=== PATIENT | male | born 1995 | race Caucasian/White ===

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

== ENCOUNTER 2017-12-19 15:31 | Emergency (ER) | payer OTHER ==
[2017-12-19 15:41] VITALS: BP 164/95; PULSE 111; RESP 18; TEMP 97.3
--- NOTE | 2017-12-19 16:50 | ED ---
Chest Pain HPI - General Chief Complaint: Chest Pain Stated Complaint: Facial numbness Time Seen by Provider: 12/19/17 16:24 Source: patient Mode of arrival: ambulatory Limitations: no limitations - History of Present Illness Initial Comments: Patient is a 22-year-old male with no past medical history that is sent for chest pain. The patient states that last night, he was playing cold duty and he was washing his friend playing when he felt like his chest was hurting. It felt like a "empty heartbeat" and it felt like a stabbing sensation without radiation and states that he got better whenever he would lay flat. He also admits to taking some Benadryl intravenously which made the symptoms go away. However, when he woke up, he again had the symptoms which worsened throughout the day. He denies any illicit drug use other than marijuana and states that there is no history of early heart attacks in his family.Pt also denies any prolonged periods of immobility, CA, DVT/PE, estrogen use, or recent surgery. - Related Data Home Medications Medication Instructions Recorded Confirmed Dm/Acetaminophen/Doxylamine [Vicks 1 cap PO DAILY 12/19/17 12/19/17 Nyquil Liquicaps] diphenhydrAMINE HCL [Benadryl] 25 mg PO HS 12/19/17 12/19/17 Allergies Allergy/AdvReac Type Severity Reaction Status Date / Time neomycin sulfate Allergy Severe Anaphylaxis Verified 12/19/17 16:35 [From Neosporin ([id number])] bacitracin Allergy Anaphylaxis Verified 12/19/17 16:35 [From Neosporin ([id number])] bacitracin zinc Allergy Anaphylaxis Verified 12/19/17 16:35 [From Neosporin ([id number])] polymyxin B Allergy Anaphylaxis Verified 12/19/17 16:35 [From Neosporin ([id number])] Review of Systems ROS Statement: Those systems with pertinent positive or pertinent negative responses have been documented in the HPI. Constitutional: Negative for chills, fatigue and fever. HENT: Negative for congestion. Respiratory: Negative for chest tightness, shortness of breath and wheezing. Negative for cough Cardiovascular: Positive for chest pain and palpitations. Gastrointestinal: Negative for abdominal pain. Negative for abdominal distention , diarrhea, nausea and vomiting. Genitourinary: Negative for dysuria. Musculoskeletal: Negative for back pain, neck pain and neck stiffness. Skin: Negative for color change. Neurological: Negative for dizziness, speech difficulty, weakness and light- headedness. Psychiatric/Behavioral: Negative for agitation and confusion. Negative for anxiety ROS Other: All systems not noted in ROS Statement are negative. EKG Findings - EKG Comments: EKG Findings:: EKG shows normal sinus rhythm with a rate of 88 bpm, OR interval 138, QRS 100, QTC 438. There are no significant ST depressions or elevations. Past Medical History Past Medical History: No Reported History History of Any Multi-Drug Resistant Organisms: MRSA Date of last positivie culture/infection: 10/28/2013 MDRO Source:: Left Leg Additional Past Surgical History / Comment(s): Hydrocele, heel surgery, wrist surgery Past Psychological History: No Psychological Hx Reported Smoking Status: Current every day smoker Past Alcohol Use History: None Reported Past Drug Use History: Marijuana General Exam - General Exam Comments Initial Comments: Constitutional: Pt is oriented to person, place, and time. Pt appears well- developed and well-nourished. No distress. HENT: Head: Normocephalic and atraumatic. Eyes: EOM are normal. Neck: Normal range of motion. Neck supple. Cardiovascular: Normal rate, regular rhythm, S1 normal, S2 normal and normal heart sounds. Exam reveals no gallop and no friction rub. No murmur heard. Pulmonary/Chest: Effort normal and breath sounds normal. No tachypnea and no bradypnea. No respiratory distress. No wheezes or rales noted. Abdominal: Soft. Bowel sounds are normal. Pt exhibits no shifting dullness, no distension, no pulsatile liver, no fluid wave, no abdominal bruit and no ascites. There is no tenderness. There is no rigidity, no rebound, no guarding, no tenderness at McBurney's point and negative Vivas's sign. Musculoskeletal: Normal range of motion. Neurological: Pt is alert and oriented to person, place, and time. No cranial nerve deficit. Skin: Skin is warm and dry. No rash noted. Pt is not diaphoretic. No erythema. No pallor. Psychiatric: Pt has a normal mood and affect. Pt behavior is normal. Thought content normal. Limitations: no limitations Course Vital Signs 12/19/17 15:37 Temperature 97.3 F L Pulse Rate 111 H Respiratory 18 Rate Blood Pressure 164/95 O2 Sat by Pulse 100 Oximetry Chest Pain MDM - MDM Chest x-ray showed no evidence acute pathology and EKG showed normal sinus rhythm. D-dimer was performed as the patient was noted to be tachycardic in triage and negative. CBC and BMP showed no evidence of significant abnormalities.It was explained that while there does not appear to be an emergent process, the etiology of the symptoms are still unclear but possibly related to muscle strain and may need further workup as an outpatient if symptoms continue. Explained all labs and diagnostic test results and that we will discharge the patient home and patient is to follow up with PCP in 1-2 days and return to the ED if symptoms worsen. Pt is agreeable to plan. Disposition Clinical Impression: Chest pain Disposition: HOME SELF-CARE Condition: Good Instructions: Chest Pain (ED) Is patient prescribed a controlled substance at d/c from ED?: No Referrals: None,Stated [Primary Care Provider] - 1-2 days Time of Disposition: 18:01
[2017-12-19 17:07] LABS: Basophils # (A) 0.1 k/uL (0-0.2); Basophils % (A) 1 %; Eosinophils # (A) 0.4 k/uL (0-0.7); Eosinophils % (A) 6 %; HCT 46.6 % (39.0-53.0); Lymphocytes # (A) 2.1 k/uL (1.0-4.8); Lymphocytes % (A) 29 %; MCH 31.1 pg (25.0-35.0); MCHC 34.3 g/dL (31.0-37.0); MCV 90.7 fL (80.0-100.0); Mean Platelet Volume 7.4; Monocytes # (A) 0.4 k/uL (0-1.0); Monocytes % (A) 5 %; Neutrophils % (A) 57 %; Platelet Count 163 k/uL (150-450); RBC 5.14 m/uL (4.30-5.90); RDW 12.4 % (11.5-15.5); WBC 7.1 k/uL (4.0-11.0)
[2017-12-19 17:18] LABS: Anion Gap 9 mmol/L; Blood Urea Nitrogen 11 mg/dL (9-20); Calcium 9.5 mg/dL (8.4-10.2); Carbon Dioxide 27 mmol/L (22-30); Chloride 107 mmol/L (98-107); Glucose 98 mg/dL (74-99); Potassium 4.6 mmol/L (3.5-5.1); Sodium 143 mmol/L (137-145)
--- NOTE | 2017-12-19 17:36 | XR ---
EXAMINATION TYPE: XR chest 2V DATE OF EXAM: 12/19/2017 COMPARISON: NONE HISTORY: Heart racing and chest pain today. TECHNIQUE: Frontal and lateral views of the chest are obtained. FINDINGS: There is no focal air space opacity, pleural effusion, or pneumothorax seen. The cardiac silhouette size is within normal limits. The osseous structures are intact. IMPRESSION: No acute cardiopulmonary process.
== END 2017-12-19 18:43 | disposition home or self-care (01) ==
LOC: EC 15:31
DX: R07.9 Chest pain, unspecified (principal); R20.0 Anesthesia of skin; F17.200 Nicotine dependence, unspecified, uncomplicated; Z86.14 Personal history of Methicillin resistant Staphylococcus aureus infection; Z79.899 Other long term (current) drug therapy; Z88.1 Allergy status to other antibiotic agents
CPT/HCPCS: 36415; 71046; 80048; 85025; 85379; 93005; 99285

== ENCOUNTER 2018-03-15 20:17 | Emergency (ER) | payer OTHER ==
[2018-03-15 20:26] VITALS: TEMP 98.8
--- NOTE | 2018-03-15 22:35 | ED ---
Skin/Abscess/FB HPI - General Source: patient Mode of arrival: ambulatory Limitations: no limitations <Silvia Costa - Last Filed: 03/16/18 04:09> <Ebony Fay - Last Filed: 03/16/18 09:57> - General Chief complaint: Skin/Abscess/Foreign Body Stated complaint: Dry Skin/Rash Time Seen by Provider: 03/15/18 22:03 - History of Present Illness Initial comments: 22-year-old male patient presents to the emergency department today for evaluation of rash to his trunk. Patient states that 3 weeks ago he noticed some red bumps beneath the right breast. Patient states that since then the bumps have spread over his trunk. Patient denies any itching, burning, drainage , or pain from the lesions. Patient states he did start using a new laundry detergent but denies exposure to any other new substances. Denies any fever or chills. Denies any recent travel. States otherwise he feels well. Patient denies any recent rash, shortness breath, chest pain, abdominal pain, nausea, vomiting, diarrhea, constipation, back pain, numbness, tingling, dizziness, weakness, hematuria, dysuria, urinary urgency, urinary frequency, headache, visual changes, or any other complaints. (Silvia Costa) - Related Data Home Medications Medication Instructions Recorded Confirmed No Known Home Medications 03/15/18 03/15/18 Allergies Allergy/AdvReac Type Severity Reaction Status Date / Time neomycin sulfate Allergy Severe Anaphylaxis Verified 03/15/18 22:31 [From Neosporin ([id number])] bacitracin Allergy Anaphylaxis Verified 03/15/18 22:31 [From Neosporin ([id number])] bacitracin zinc Allergy Anaphylaxis Verified 03/15/18 22:31 [From Neosporin ([id number])] polymyxin B Allergy Anaphylaxis Verified 03/15/18 22:31 [From Neosporin ([id number])] Review of Systems ROS Other: All systems not noted in ROS Statement are negative. <Silvia Costa - Last Filed: 03/16/18 04:09> ROS Other: All systems not noted in ROS Statement are negative. <Ebony Fay - Last Filed: 03/16/18 09:57> ROS Statement: Those systems with pertinent positive or pertinent negative responses have been documented in the HPI. Past Medical History Past Medical History: No Reported History Additional Past Medical History / Comment(s): possible HTN, History of Any Multi-Drug Resistant Organisms: MRSA Date of last positivie culture/infection: 10/28/2013 MDRO Source:: Left Leg Additional Past Surgical History / Comment(s): Hydrocele, heel surgery, wrist surgery, Past Psychological History: No Psychological Hx Reported Smoking Status: Current every day smoker Past Alcohol Use History: Occasional Past Drug Use History: None Reported <Silvia Costa - Last Filed: 03/16/18 04:09> General Exam Limitations: no limitations General appearance: alert, in no apparent distress, other (This is a well- developed, well-nourished adult male patient in no acute distress. Vital signs upon presentation are temperature 98.8F, pulse 84, respirations 18, blood pressure 171/100, pulse ox 99% on room air) Respiratory exam: Present: normal lung sounds bilaterally. Absent: respiratory distress, wheezes, rales, rhonchi, stridor Cardiovascular Exam: Present: regular rate, normal rhythm, normal heart sounds. Absent: systolic murmur, diastolic murmur, rubs, gallop, clicks Neurological exam: Present: alert, oriented X3, CN II-XII intact Psychiatric exam: Present: normal affect, normal mood Skin exam: Present: warm, dry, intact, normal color, rash (Patient has discrete erythematous papules scattered distribution over the trunk. Lesions are non- petechial, nonvesicular, no surrounding erythema.) <Silvia Costa M - Last Filed: 03/16/18 04:09> Vital Signs 03/15/18 03/15/18 20:21 22:42 Temperature 98.8 F Pulse Rate 84 67 Respiratory 18 16 Rate Blood Pressure 171/100 158/92 O2 Sat by Pulse 99 97 Oximetry Medical Decision Making <Silvia Costa - Last Filed: 03/16/18 04:09> <Ebony Fay - Last Filed: 03/16/18 09:57> - Medical Decision Making 22-year-old male patient presents to the emergency department today for evaluation of rash to his trunk. Physical examination did reveal scattered erythematous papules. Lesions are non-pruritic nonpainful. They're nonvesicular, non-petechial. No oral lesions. Patient will be discharged home , is instructed to obtain [id number] cortisone cream to apply. He is instructed to follow-up with [facility] for possible referral to dermatology. Return parameters discussed in detail. He verbalizes understanding and agrees with this plan. (Silvia Costa) I personally saw and evaluated the patient. Patient has nonpruritic nonpainful nonvesicular non-petechial lesions isolated to the trunk. These are of uncertain etiology, do not appear infectious. At this time I advised the patient that supportive care with continued avoidance of any skinnier tense and follow up with primary care and dermatology as recommended. (Ebony Fay) Disposition Is patient prescribed a controlled substance at d/c from ED?: No Time of Disposition: 22:35 <Silvia Costa - Last Filed: 03/16/18 04:09> <Ebony Fay - Last Filed: 03/16/18 09:57> Clinical Impression: Rash Disposition: HOME SELF-CARE Condition: Good Instructions: Acute Rash (ED) Additional Instructions: Try over the counter cortisone cream, apply to the lesions. Follow up outpatient with [facility] for further evaluation and referral to dermatology. Return to the emergency department for any new, worsening, or concerning symptoms Referrals: [facility] [NON-STAFF] - 1-2 days
[2018-03-15 22:44] VITALS: BP 158/92; PULSE 67; RESP 16
== END 2018-03-15 22:42 | disposition home or self-care (01) ==
LOC: EC 20:17
DX: R21 Rash and other nonspecific skin eruption (principal); R23.8 Other skin changes; F17.200 Nicotine dependence, unspecified, uncomplicated; Z86.14 Personal history of Methicillin resistant Staphylococcus aureus infection; Z98.890 Other specified postprocedural states; Z88.1 Allergy status to other antibiotic agents
CPT/HCPCS: 99282

== ENCOUNTER 2023-06-23 19:14 | Emergency (ER) | payer OTHER ==
--- NOTE | 2023-06-23 19:40 | ED ---
General Adult HPI - General Chief complaint: ENT Stated complaint: Left earlobe swollen Time Seen by Provider: 06/23/23 19:39 Source: patient, RN notes reviewed Mode of arrival: ambulatory Limitations: no limitations - History of Present Illness Initial comments: 27 year old male presents to the emergency department for left ear pain and swelling x 2 days. Swelling seems to be around where his ear piercings are on his left earlobe. He also notes redness to the area. He also notes a lump in his neck. He does note that he took 1 dose of Augmentin earlier today that his mother had leftover. He also admits to taking ibuprofen for the pain. He denies fever. Denies nausea, vomiting. He does report a history of elevated blood pressure but he does not take medications currently. - Related Data Previous Rx's Medication Instructions Recorded Cephalexin [Keflex] 500 mg PO Q6HR #40 cap 06/23/23 Losartan [Cozaar] 25 mg PO DAILY #14 tab 06/23/23 Sulfamethox-Tmp 800-160Mg [Bactrim 1 tab PO Q12HR #20 tab 06/23/23 DS 800-160 mg] Allergies Allergy/AdvReac Type Severity Reaction Status Date / Time neomycin sulfate Allergy Severe Anaphylaxis Verified 06/23/23 19:37 [From Neosporin ([id number])] bacitracin Allergy Anaphylaxis Verified 06/23/23 19:37 [From Neosporin ([id number])] bacitracin zinc Allergy Anaphylaxis Verified 06/23/23 19:37 [From Neosporin ([id number])] polymyxin B Allergy Anaphylaxis Verified 06/23/23 19:37 [From Neosporin ([id number])] Review of Systems ROS Statement: Those systems with pertinent positive or pertinent negative responses have been documented in the HPI. ROS Other: All systems not noted in ROS Statement are negative. Past Medical History Past Medical History: No Reported History Additional Past Medical History / Comment(s): possible HTN, History of Any Multi-Drug Resistant Organisms: MRSA Date of last positivie culture/infection: 10/28/2013 MDRO Source:: Left Leg Additional Past Surgical History / Comment(s): Hydrocele, heel surgery, wrist surgery, Past Psychological History: No Psychological Hx Reported Smoking Status: Current every day smoker Past Alcohol Use History: Occasional Past Drug Use History: None Reported General Exam - General Exam Comments Initial Comments: Visual Physical Exam Vital signs reviewed General: Well-appearing, nontoxic, no acute distress. Head: Normocephalic, atraumatic Eyes: PERRLA, EOMI ENT: Airway patent, erythema and swelling to left ear lobe Chest: Nonlabored breathing Skin: No visual rash, normal skin tone Neuro: Alert and oriented 3 Musculoskeletal: No gross abnormalities Limitations: no limitations General appearance: alert, in no apparent distress Head exam: Present: atraumatic, normocephalic, normal inspection Eye exam: Present: normal appearance, PERRL, EOMI. Absent: scleral icterus, conjunctival injection, periorbital swelling ENT exam: Present: TM's normal bilaterally, other (No mastoid tenderness to palpation). Absent: normal external ear exam (Swelling and erythema to the left earlobe around ear piercing) Neck exam: Present: lymphadenopathy (Preauricular lymphadenopathy). Absent: tenderness, meningismus Respiratory exam: Present: normal lung sounds bilaterally. Absent: respiratory distress, wheezes, rales, rhonchi, stridor Cardiovascular Exam: Present: regular rate, normal rhythm, normal heart sounds. Absent: systolic murmur, diastolic murmur, rubs, gallop, clicks Neurological exam: Present: alert, oriented X3 Psychiatric exam: Present: normal affect, normal mood Skin exam: Present: warm, dry, intact, erythema. Absent: normal color, rash Course Vital Signs 06/23/23 06/23/23 19:34 20:33 Temperature 98 F 98.2 F Pulse Rate 122 H 92 Respiratory 20 18 Rate Blood Pressure 187/110 173/112 O2 Sat by Pulse 100 97 Oximetry Medical Decision Making - Medical Decision Making Quick note preformed and electronically signed by Desiree Hadley PA-C Was pt. sent in by a medical professional or institution (SHANNON Jose, REGISTERED DIETETIC TECHNICIAN, urgent care, hospital, or fdc...) When possible be specific @ -No Did you speak to anyone other than the patient for history (EMS, parent, family, police, friend...)? What history was obtained from this source @ -No Did you review nursing and triage notes (agree or disagree)? Why? @ -I reviewed and agree with nursing and triage notes Were old charts reviewed (outside hosp., previous admission, EMS record, old EKG, old radiological studies, urgent care reports/EKG's, fdc records)? Report findings @ -No old charts were reviewed Differential Diagnosis (chest pain, altered mental status, abdominal pain women, abdominal pain men, vaginal bleeding, weakness, fever, dyspnea, syncope, headache, dizziness, GI bleed, back pain, seizure, CVA, palpatations, mental health, musculoskeletal)? @ -Cellulitis, abscess, otitis media, otitis externa, this list is not all inclusive. EKG interpreted by me (3pts min.). @ -none X-rays interpreted by me (1pt min.). @ -None done CT interpreted by me (1pt min.). @ -None done U/S interpreted by me (1pt. min.). @ -None done What testing was considered but not performed or refused? (CT, X-rays, U/S, labs)? Why? @ -None What meds were considered but not given or refused? Why? @ -None Did you discuss the management of the patient with other professionals (professionals i.e. , PA, REGISTERED DIETETIC TECHNICIAN, lab, RT, psych nurse, social media coordinator, bilingual patient support caseworker, teacher, radio division officer, sample case porter)? Give summary @ -No Was smoking cessation discussed for >3mins.? @ -No Was critical care preformed (if so, how long)? @ -No Were there social determinants of health that impacted care today? How? (Homelessness, low income, unemployed, alcoholism, drug addiction, transportation, low edu. Level, literacy, decrease access to med. care, long term, rehab)? @ -No Was there de-escalation of care discussed even if they declined (Discuss DNR or withdrawal of care, Hospice)? DNR status @ -No What co-morbidities impacted this encounter? (DM, HTN, Smoking, COPD, CAD, Cancer, CVA, ARF, Chemo, Hep., AIDS, mental health diagnosis, sleep apnea, morbid obesity)? @ -None Was patient admitted / discharged? Hospital course, mention meds given and route, prescriptions, significant lab abnormalities, going to OR and other pertinent info. @ -Discharged. Patient presented to the emergency department for evaluation of left external ear pain and swelling x 2 days. Reports taking 1 dose of Augmentin earlier today. He denies fever, chills. Patient will be treated for cellulitis. Patient given a dose of Rocephin in the ED along with Toradol. Prescription sent to patient's pharmacy for antibiotics. 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 Strict return precautions discussed. Patient was also found to have elevated blood pressure readings. He does report issues with this in the past. He does not currently follow with a PCP. Denies symptoms of chest pain, headache, shortness of breath. Advised to monitor his blood pressure at home and follow-up with a primary care provider for further management. List of PCPs provided. Patient understanding and agreeable with discharge plan. Undiagnosed new problem with uncertain prognosis? @ -No Drug Therapy requiring intensive monitoring for toxicity (Heparin, Nitro, Insulin, Cardizem)? @ -No Were any procedures done? @ -No Diagnosis/symptom? @ -Cellulitis of left ear Acute, or Chronic, or Acute on Chronic? @ -Acute Uncomplicated (without systemic symptoms) or Complicated (systemic symptoms)? @ -Uncomplicated Side effects of treatment? @ -No Exacerbation, Progression, or Severe Exacerbation? @ -No Poses a threat to life or bodily function? How? (Chest pain, [place], [place], pneumonia, PE, COPD, DKA, ARF, appy, cholecystitis, CVA, Diverticulitis, Homicidal, Suicidal, threat to staff... and all critical care pts) @ -No Disposition Clinical Impression: Cellulitis of earlobe, Hypertension Disposition: HOME SELF-CARE Condition: Stable Instructions (If sedation given, give patient instructions): Cellulitis (ED), Chronic Hypertension (ED) Additional Instructions: Please molded goods spot picker antibiotics and take to completion. Utilize ibuprofen and Tylenol for discomfort. Follow with your primary care provider for blood pressure management. Take your blood pressure at home and reports findings to PCP. Return to the emergency department for new or worsening symptoms. Prescriptions: Sulfamethox-Tmp 800-160Mg [Bactrim DS 800-160 mg] 1 tab PO Q12HR #20 tab Losartan [Cozaar] 25 mg PO DAILY #14 tab Cephalexin [Keflex] 500 mg PO Q6HR #40 cap Is patient prescribed a controlled substance at d/c from ED?: No Referrals: None,Stated [Primary Care Provider] - 1-2 days Forms: Area PCPs
[2023-06-23] MEDS: cefTRIAXone 1,000 MG VIAL (IM USE) IM STA (20:36)
[2023-06-23] MEDS: KETOROLAC 15 MG/ML 1 ML VIAL IM STA (20:36)
[2023-06-23 21:02] VITALS: BP 173/112; PULSE 92; RESP 18; TEMP 98.2
== END 2023-06-23 21:07 | disposition home or self-care (01) ==
LOC: EC 19:14
DX: H60.10 Cellulitis of external ear, unspecified ear (principal); I10 Essential (primary) hypertension; F17.200 Nicotine dependence, unspecified, uncomplicated; Z88.6 Allergy status to analgesic agent; Z88.8 Allergy status to other drugs, medicaments and biological substances
CPT/HCPCS: 99283; 96372 ×2; J0696; J1885

== ENCOUNTER 2024-02-23 09:34 | Emergency (ER) | payer OTHER ==
[2024-02-23 10:11] LABS: Basophils # (A) 0.1 k/uL (0-0.2); Basophils % (A) 1 %; Eosinophils # (A) 0.4 k/uL (0-0.7); Eosinophils % (A) 5 %; HCT 50.5 % (39.0-53.0); HGB 17.9 gm/dL (13.0-17.5); Lymphocytes # (A) 2.3 k/uL (1.0-4.8); Lymphocytes % (A) 28 %; MCH 36.4 pg (25.0-35.0); MCHC 35.5 g/dL (31.0-37.0); MCV 102.6 fL (80.0-100.0); Macrocytosis Slight; Mean Platelet Volume 7.9; Monocytes # (A) 0.4 k/uL (0-1.0); Monocytes % (A) 5 %; Neutrophils # (A) 4.7 k/uL (1.3-7.7); Neutrophils % (A) 58 %; Platelet Count 209 k/uL (150-450); RBC 4.93 m/uL (4.30-5.90); RDW 14.2 % (11.5-15.5); WBC 8.1 k/uL (3.8-10.6)
[2024-02-23] MEDS: SODIUM CHLORIDE 0.9% 500 ML 500 ML IV STA (10:23)
[2024-02-23 10:24] LABS: ALT 81 U/L (4-49); AST 154 U/L (17-59); African American GFR (CKD) >90 (>60 ml/min/1.73 sqM); Albumin 4.9 g/dL (3.5-5.0); Alkaline Phosphatase 121 U/L (38-126); Anion Gap 10 mmol/L; Blood Urea Nitrogen 7 mg/dL (9-20); Calcium 9.3 mg/dL (8.4-10.2); Carbon Dioxide 30 mmol/L (22-30); Chloride 108 mmol/L (98-107); Glucose 98 mg/dL (74-99); Lipase 112 U/L (23-300); Magnesium 2.1 mg/dL (1.6-2.3); Non-African American GFR(CKD) >90 (>60 ml/min/1.73 sqM); Potassium 3.3 mmol/L (3.5-5.1); Sodium 148 mmol/L (137-145); Total Bilirubin 0.7 mg/dL (0.2-1.3); Total Protein 8.1 g/dL (6.3-8.2)
[2024-02-23] MEDS: SODIUM CHLORIDE 0.9% 1,000 ML IV STA (10:24)
[2024-02-23 10:28] LABS: INR 0.9 (<1.2); Partial Thromboplastin Time 25.5 sec (22.0-30.0); Prothrombin Time 10.3 sec (10.0-12.5)
[2024-02-23] MEDS: KETOROLAC 15 MG/ML 1 ML VIAL IVP STA (10:46)
[2024-02-23] MEDS: POTASSIUM CHLORIDE ER 20 MEQ TAB.ER PO STA (10:48)
--- NOTE | 2024-02-23 11:33 | ED ---
General Adult HPI - General Chief complaint: Chest Pain Stated complaint: chest pain/SOB Time Seen by Provider: 02/23/24 09:46 Source: patient, RN notes reviewed Mode of arrival: ambulatory Limitations: no limitations - History of Present Illness Initial comments: 29-year-old male presents emergency department chief complaint of chest pain abdominal pain. Patient states that he drank a large amount alcohol last night. Patient states that woke up he has a history of pleurisy patient states pain feels worse with movement states that he does feel somewhat like pleurisy. Patient denies being recent illness he states he feels dehydrated from his alco hol use. Patient denies prior lung disease denies diarrhea, constipation, dysuria no back pain no flank pain. - Related Data Previous Rx's Medication Instructions Recorded Cephalexin [Keflex] 500 mg PO Q6HR #40 cap 06/23/23 Losartan [Cozaar] 25 mg PO DAILY #14 tab 06/23/23 Sulfamethox-Tmp 800-160Mg [Bactrim 1 tab PO Q12HR #20 tab 06/23/23 DS 800-160 mg] Allergies Allergy/AdvReac Type Severity Reaction Status Date / Time neomycin sulfate Allergy Severe Anaphylaxis Verified 02/23/24 09:38 [From Neosporin ([id number])] bacitracin Allergy Anaphylaxis Verified 02/23/24 09:38 [From Neosporin ([id number])] bacitracin zinc Allergy Anaphylaxis Verified 02/23/24 09:38 [From Neosporin ([id number])] polymyxin B Allergy Anaphylaxis Verified 02/23/24 09:38 [From Neosporin ([id number])] Review of Systems ROS Statement: Those systems with pertinent positive or pertinent negative responses have been documented in the HPI. ROS Other: All systems not noted in ROS Statement are negative. Past Medical History Past Medical History: No Reported History, Hypertension Additional Past Medical History / Comment(s): possible HTN, History of Any Multi-Drug Resistant Organisms: MRSA Date of last positivie culture/infection: 10/28/2013 MDRO Source:: Left Leg Additional Past Surgical History / Comment(s): Hydrocele, heel surgery, wrist surgery, Past Psychological History: No Psychological Hx Reported Smoking Status: Current every day smoker Past Alcohol Use History: Occasional Past Drug Use History: None Reported General Exam Limitations: no limitations General appearance: alert, in no apparent distress Head exam: Present: atraumatic, normocephalic, normal inspection Eye exam: Present: normal appearance, PERRL, EOMI. Absent: scleral icterus, conjunctival injection, periorbital swelling ENT exam: Present: normal exam, mucous membranes moist Neck exam: Present: normal inspection, full ROM. Absent: tenderness, meningismus, lymphadenopathy Respiratory exam: Present: normal lung sounds bilaterally, chest wall tender ness. Absent: respiratory distress, wheezes, rales, rhonchi, stridor Cardiovascular Exam: Present: normal rhythm, tachycardia, normal heart sounds. Absent: systolic murmur, diastolic murmur, rubs, gallop, clicks GI/Abdominal exam: Present: soft, tenderness, normal bowel sounds. Absent: distended, guarding, rebound, rigid Course Vital Signs 02/23/24 09:36 Temperature 97.8 F Pulse Rate 107 H Respiratory 20 Rate Blood Pressure 188/107 O2 Sat by Pulse 98 Oximetry EKG Findings - EKG Comments: EKG Findings:: EKG performed at 9: 48 sinus tachycardia rate of 102 DC 140 QRS 98 QT/QTc 353/412 - EKG Results: EKG: interpreted by EMY Medical Decision Making - Medical Decision Making Was pt. sent in by a medical professional or institution (, PA, CHANGE MANAGEMENT SPECIALIST, urgent care, hospital, or assisted...) When possible be specific @ -No Did you speak to anyone other than the patient for history (EMS, parent, family, police, friend...)? What history was obtained from this source @ -No Did you review nursing and triage notes (agree or disagree)? Why? @ -I reviewed and agree with nursing and triage notes Were old charts reviewed (outside hosp., previous admission, EMS record, old EKG, old radiological studies, urgent care reports/EKG's, assisted records)? Report findings @ -No old charts were reviewed Differential Diagnosis (chest pain, altered mental status, abdominal pain women, abdominal pain men, vaginal bleeding, weakness, fever, dyspnea, syncope, headache, dizziness, GI bleed, back pain, seizure, CVA, palpatations, mental health, musculoskeletal)? @ -Differential Chest Pain: Stable Angina, Unstable Angina, STEMI, NSTEMI Aortic Dissection, Pneumothorax, Musculoskeletal, Esophageal Spasm GERD, Cholecystitis, Pancreatitis, Zoster, this is not meant to be an all-inclusive list. EKG interpreted by me (3pts min.). @ -As above X-rays interpreted by me (1pt min.). @ -Chest x-ray shows no acute cardiopulmonary process. CT interpreted by me (1pt min.). @ -None done U/S interpreted by me (1pt. min.). @ -None done What testing was considered but not performed or refused? (CT, X-rays, U/S, labs)? Why? @ -None What meds were considered but not given or refused? Why? @ -None Did you discuss the management of the patient with other professionals (professionals i.e. , PA, CHANGE MANAGEMENT SPECIALIST, lab, RT, psych nurse, social work instructor, broke man, teacher, correctional security officer, employment evaluator/case manager)? Give summary @ -No Was smoking cessation discussed for >3mins.? @ -No Was critical care preformed (if so, how long)? @ -No Were there social determinants of health that impacted care today? How? (Homelessness, low income, unemployed, alcoholism, drug addiction, transportation, low edu. Level, literacy, decrease access to med. care, halfway, rehab)? @ -No Was there de-escalation of care discussed even if they declined (Discuss DNR or withdrawal of care, Hospice)? DNR status @ -No What co-morbidities impacted this encounter? (DM, HTN, Smoking, COPD, CAD, Cancer, CVA, ARF, Chemo, Hep., AIDS, mental health diagnosis, sleep apnea, m orbid obesity)? @ -None Was patient admitted / discharged? Hospital course, mention meds given and r oute, prescriptions, significant lab abnormalities, going to OR and other pertinent info. @ -Discharge patient has reproducible chest wall pain, worse with movement patient negative workup including labs, EKG chest x-ray. Patient did have mild hypokalemia was given K-Dur, patient did have a dehydration given fluids. Undiagnosed new problem with uncertain prognosis? @ -No Drug Therapy requiring intensive monitoring for toxicity (Heparin, Nitro, Insulin, Cardizem)? @ -No Were any procedures done? @ -No Diagnosis/symptom? @ -Chest wall pain, hypokalemia Acute, or Chronic, or Acute on Chronic? @ -Acute Uncomplicated (without systemic symptoms) or Complicated (systemic symptoms)? @ -Complicated Side effects of treatment? @ -No Exacerbation, Progression, or Severe Exacerbation? @ -No Poses a threat to life or bodily function? How? (Chest pain, [place], [place], pneumonia, PE, COPD, DKA, ARF, appy, cholecystitis, CVA, Diverticulitis, Homicidal, Suicidal, threat to staff... and all critical care pts) @ -No - Lab Data Result diagrams: 02/23/24 10:00 02/23/24 10:00 Lab Results 02/23/24 02/23/24 02/23/24 Range/Units 10:00 10:00 10:00 WBC 8.1 (3.8-10.6) k/uL RBC 4.93 (4.30-5.90) m/uL Hgb 17.9 H (13.0-17.5) gm/dL Hct 50.5 (39.0-53.0) % MCV 102.6 H (80.0-100.0) fL MCH 36.4 H (25.0-35.0) pg MCHC 35.5 (31.0-37.0) g/dL RDW 14.2 (11.5-15.5) % Plt Count 209 (150-450) k/uL MPV 7.9 Neutrophils % 58 % Lymphocytes % 28 % Monocytes % 5 % Eosinophils % 5 % Basophils % 1 % Neutrophils # 4.7 (1.3-7.7) k/uL Lymphocytes # 2.3 (1.0-4.8) k/uL Monocytes # 0.4 (0-1.0) k/uL Eosinophils # 0.4 (0-0.7) k/uL Basophils # 0.1 (0-0.2) k/uL Macrocytosis Slight PT 10.3 (10.0-12.5) sec INR 0.9 (<1.2) APTT 25.5 (22.0-30.0) sec Sodium 148 H (137-145) mmol/L Potassium 3.3 L (3.5-5.1) mmol/L Chloride 108 H (98-107) mmol/L Carbon Dioxide 30 (22-30) mmol/L Anion Gap 10 mmol/L BUN 7 L (9-20) mg/dL Creatinine 0.86 (0.66-1.25) mg/dL Est GFR (CKD-EPI)AfAm >90 (>60 ml/min/1.73 sqM) Est GFR (CKD-EPI)NonAf >90 (>60 ml/min/1.73 sqM) Glucose 98 (74-99) mg/dL Calcium 9.3 (8.4-10.2) mg/dL Magnesium 2.1 (1.6-2.3) mg/dL Total Bilirubin 0.7 (0.2-1.3) mg/dL AST 154 H (17-59) U/L ALT 81 H (4-49) U/L Alkaline Phosphatase 121 (38-126) U/L Troponin I (0.000-0.034) ng/mL Total Protein 8.1 (6.3-8.2) g/dL Albumin 4.9 (3.5-5.0) g/dL Lipase 112 (23-300) U/L 02/23/24 Range/Units 10:00 WBC (3.8-10.6) k/uL RBC (4.30-5.90) m/uL Hgb (13.0-17.5) gm/dL Hct (39.0-53.0) % MCV (80.0-100.0) fL MCH (25.0-35.0) pg MCHC (31.0-37.0) g/dL RDW (11.5-15.5) % Plt Count (150-450) k/uL MPV Neutrophils % % Lymphocytes % % Monocytes % % Eosinophils % % Basophils % % Neutrophils # (1.3-7.7) k/uL Lymphocytes # (1.0-4.8) k/uL Monocytes # (0-1.0) k/uL Eosinophils # (0-0.7) k/uL Basophils # (0-0.2) k/uL Macrocytosis PT (10.0-12.5) sec INR (<1.2) APTT (22.0-30.0) sec Sodium (137-145) mmol/L Potassium (3.5-5.1) mmol/L Chloride (98-107) mmol/L Carbon Dioxide (22-30) mmol/L Anion Gap mmol/L BUN (9-20) mg/dL Creatinine (0.66-1.25) mg/dL Est GFR (CKD-EPI)AfAm (>60 ml/min/1.73 sqM) Est GFR (CKD-EPI)NonAf (>60 ml/min/1.73 sqM) Glucose (74-99) mg/dL Calcium (8.4-10.2) mg/dL Magnesium (1.6-2.3) mg/dL Total Bilirubin (0.2-1.3) mg/dL AST (17-59) U/L ALT (4-49) U/L Alkaline Phosphatase (38-126) U/L Troponin I <0.012 (0.000-0.034) ng/mL Total Protein (6.3-8.2) g/dL Albumin (3.5-5.0) g/dL Lipase (23-300) U/L Disposition Clinical Impression: Chest wall pain, Dehydration, Hypokalemia Disposition: HOME SELF-CARE Condition: Stable Instructions (If sedation given, give patient instructions): Chest Pain (ED) Additional Instructions: Please return to the Emergency Department if symptoms worsen or any other concerns. Is patient prescribed a controlled substance at d/c from ED?: No Referrals: None,Stated [Primary Care Provider] - 1-2 days Time of Disposition: 11:33
[2024-02-23 11:53] VITALS: BP 195/84; PULSE 78; RESP 18; TEMP 97.1
== END 2024-02-23 11:51 | disposition home or self-care (01) ==
LOC: EC 09:34
DX: R07.89 Other chest pain (principal); E86.0 Dehydration; E87.6 Hypokalemia; F17.200 Nicotine dependence, unspecified, uncomplicated; Z88.8 Allergy status to other drugs, medicaments and biological substances
CPT/HCPCS: 99285 ×2; 96374 ×2; 96361 ×2; 36415; 80053; 83690; 83735; 84484; 85025; 85610; 85730; 71046; J1885